=== PATIENT | male | born 1950 | race Caucasian/White ===

== ENCOUNTER 2016-12-16 16:12 | Observation (INO) | payer BC ==
--- NOTE | ~2016-12-16 | HP ---
History And Physical [facility] [address] [place]. [address] NAME: LIV AGUILAR JR : 54 STATUS : ADM Neelam PAT#: [id number] AGE: 66 ADM/REG DATE : 12/16/16 MR#: [id number] REPORT SERV DATE: 12/17/16 DICTATED BY: AFSANEH LADD DATE: 12/17/16 REPORT STATUS : Draft TRANSCRIBED BY: MODCesar DATE: 12/17/16 DATE OF ADMISSION: 12/16/2016 CHIEF COMPLAINT: MADRIGAL and episodic chest pressure. HISTORY OF PRESENT ILLNESS: A very pleasant 66-year-old white gentleman with no known history of CAD, reports over the past two weeks dyspnea on exertion and profound fatigue. He reports episodic chest pressure with a significant episode on 12/12 while playing with his grandkids. His who is also present at bedside reports that he stood up and grabbed his left chest. He took aspirin with improvement in his symptoms, but he did not seek evaluation or treatment at that time. His also reports some swelling of his hands and his earlobes. The chest pressure radiated to his left arm, shoulder, and back. He reports associated shortness of breath, nausea, diaphoresis, dizziness, and belching. At its most intense, he rated the chest discomfort a 10/10. At time of interview in the [facility], he is pain free. The episode lasted approximately a minute in duration, but it would then come and go, though there seems to be no pattern with activity. He denies any stressful, argumentative, or confrontational events. He does report persistent fatigue. He is an active gentleman, mows his own lawn, but actually children have done that for him this past week. He has occasionally taken Tums for these symptoms with no improvement. Of note, the patient did undergo nuclear stress testing in 06/2016 with good exercise tolerance to a Paulo stage 3 at 7.83 minutes, 10 METS with no ischemia identified at that time. The patient denies any personal history of myocardial infarction, stroke, DVT, or pulmonary embolus. The patient denies any recent fever or chills, no palpitations, no syncopal episodes. Denies PND or orthopnea. PAST MEDICAL HISTORY: 1. Dyslipidemia, statin intolerant. 2. Denies hypertension or diabetes. 3. Psoriatic arthritis. 4. Former tobacco abuse. SURGICAL HISTORY: 1. Total five knee surgeries bilaterally. 2. Lumbar surgery. 3. Thoracic spine surgery. 4. Right rotator cuff. 5. Bilateral carpal tunnel. 6. Tonsillectomy. SOCIAL HISTORY: He is with two children. He is employed in sales. He does not have a structured exercise routine, although he is active. Quit smoking five years ago; prior to that, was one pack per day for 30 years. Denies alcohol or illicits. FAMILY HISTORY: No embolic events reported in first-degree relatives. History And Physical [address] [place]. [address] NAME: LIV AGUILAR JR : 54 STATUS : ADM Neelam PAT#: [id number] AGE: 66 ADM/REG DATE : 12/16/16 MR#: [id number] REPORT SERV DATE: 12/17/16 DICTATED BY: AFSANEH LADD DATE: 12/17/16 REPORT STATUS : Draft TRANSCRIBED BY: KELIN DATE: 12/17/16 REVIEW OF SYSTEMS: A 14-point review of systems performed, significant for HPI including sleep study recently, negative for sleep apnea. Otherwise, complete review of systems obtained and negative. ALLERGIES: NO KNOWN ALLERGIES, BUT STATIN INTOLERANT TO CRESTOR AND LIPITOR, CAUSED MYALGIAS. HOME MEDICINES: Humira 40 mg subcu every two weeks, Tums p.r.n., prednisone 5 mg daily, Valtrex 1 g t.i.d. x7 days completed 12/16/2016. PHYSICAL EXAMINATION: VITAL SIGNS: On physical exam, bilateral blood pressures on arrival, right 140/83, left 148/84; this morning 124/82. Pulse 67, respirations 16, temperature 98.3, O2 saturation 96% on room air. Height 6 feet 1 inch, weight 211 pounds, BMI 28. GENERAL: Cooperative, in no apparent distress. HEENT: Pupils 2 mm, sclera nonicteric. Nares patent. Moist mucous membranes. No xanthelasma. NECK: Trachea midline, no thyromegaly. No JVD. No bruits. LYMPH: No cervical lymphadenopathy. No supraclavicular lymphadenopathy. RESPIRATORY: Unlabored respirations. Breath sounds clear bilaterally to posterior auscultation. No wheezes or rhonchi. CARDIOVASCULAR: Regular rate. No murmur, rub or gallop appreciated. Extremities without edema. Pulses 2+ bilaterally. ABDOMEN: Soft, nontender, nondistended, normal bowel sounds auscultated throughout. No organomegaly. SKIN: Warm, dry extremities. No pallor, or cyanosis. PSYCHIATRIC: Appropriate affect. Alert, oriented x3. LABORATORY DATA: Troponin less than 0.02 twice. TSH 1.910. Potassium 4.0, BUN 13, creatinine 1.30, glucose 98, magnesium 2.3. BNP 37.4. WBC 9.0, hemoglobin 14.0, hematocrit 40.7, platelet count 230,000. EKG; sinus rhythm. Echo, 07/2015: EF 56%. MPI, 06/2016: Paulo stage 3, 7.83 minutes, 10 METS. No ischemia. Low risk. CTA of chest, no PE. Chronic insufficiency, fractures T4, T9, T11. ASSESSMENT AND PLAN: 1. Substernal chest pain concerning for angina given recent stress test, which was negative and low risk with good exercise tolerance. The patient will be held n.p.o. for now. Would consider cath to evaluate coronary anatomy. We will discuss plan of care with rounding physician. Further recommendations forthcoming. 2. Dyspnea on exertion. Check an echocardiogram. Consider cath. CTA of chest, negative for pulmonary embolism. 3. Fatigue, as above in #1 and #2. TSH 1.910. 4. Dyslipidemia, statin intolerant. We will check a lipid panel. History And Physical [address] [address] NAME: LIV AGUILAR JR : 54 STATUS : ADM Neelam PAT#: [id number] AGE: 66 ADM/REG DATE : 12/16/16 MR#: [id number] REPORT SERV DATE: 12/17/16 DICTATED BY: AFSANEH LADD DATE: 12/17/16 REPORT STATUS : Draft TRANSCRIBED BY: KELIN DATE: 12/17/16 CHU/KELIN Afsaneh Ladd, MSN, [employer] / [id number] CC: BHAVESH Pavon, [employer] Wade Brock M.D.
[2016-12-16 14:02] LABS: BASOPHILS 0.3 %; BASOPHILS ABSOLUTE 0.03 10/3/uL (0.0-0.16); EOSINOPHILS 1.7 %; EOSINOPHILS ABSOLUTE 0.15 10/3/uL (0.0-0.53); ER CBC TAT 0 Hrs 03 Mins; HEMATOCRIT 40.7 % (40.0-51.0); IMMATURE GRANULOCYTES 0.4 %; IMMATURE GRANULOCYTES ABSOLUTE 0.04 10/3/uL (0.0-0.11); LYMPHOCYTES 28.7 %; LYMPHOCYTES ABSOLUTE 2.59 10/3/uL (0.67-4.30); MEAN CORPUSCULAR HEMOGLOB 31.5 pg (26.0-34.0); MEAN CORPUSCULAR VOLUME 91.5 fL (80-100); MEAN PLATELET VOLUME 9.4 fL (9.2-13.0); MONOCYTES 6.9 %; MONOCYTES ABSOLUTE 0.62 10/3/uL (0.21-1.20); PLATELET COUNT 230 10/3/uL (150-400); RBC DISTRIBUTION WIDTH 13.2 % (12.0-16.0); RED CELL COUNT 4.45 10/6/uL (4.7-6.1)
[2016-12-16 14:07] LABS: MANUAL DIFF NO %; MEAN CORPUS HGB CONC 34.4 g/dL (32.0-36.0)
[2016-12-16 14:11] LABS: INTERNATIONAL NORMAL RATI 1.1 UNITS (-); PROTIME (NOT ORD) 13.7 SEC (12.0-14.5)
[2016-12-16 14:25] LABS: BUN (BLOOD UREA NITROGEN) 13 MG/DL (6-23); CALCIUM, SERUM 9.5 MG/DL (8.5-10.4); CHEST PAIN PROFILE TAT 0 Hrs 26 Mins; CHLORIDE, SERUM 106 MMOL/L (96-112); CO2 (CARBON DIOXIDE) 28 MMOL/L (24-34); GFR AFRICAN AMERICAN 67 ML/MIN (>=60); GFR NON AFRICAN AMERICAN 58 ML/MIN (>=60); GLUCOSE, SERUM 98 MG/DL (60-99); SODIUM, SERUM 142 MMOL/L (135-148); TROPONIN I <0.02 NG/ML (<0.05)
[2016-12-16 15:30] LABS: SED RATE 18 MM/HR (0-15)
[~2016-12-16 16:12] MED LIST: ACET500CAP PO; ADVIL MIGRAI200 MG PO; ADVIL PO; CRESTOR10 PO; CRESTOR20 MG PO; DIL2TAB PO; FISH-EPA1000 MG PO; FOLIC PO; HUMIRA PEN SC; METHOC750B PO; MTX2.5 PO; MULTIVITAMI1 PO; NEUR400; OXAPROZIN600 MG PO; P10 PO; P5 PO; PERCOCET1 TA4 PO; TREXALL5 MG PO; ULTRAM50 PO; VALTREX5 PO; ZOCOR10 PO; ZOFRAN4 PO
[2016-12-16] MEDS ORDERED: HUMIRA PEN SC (18:46)
[2016-12-16] MEDS ORDERED: P5 PO (18:46)
[2016-12-16] MEDS ORDERED: VALTREX5 PO (18:47)
[2016-12-16] MEDS ORDERED: TUMSROLL PO (18:47)
[2016-12-17 01:06] LABS: TROPONIN I <0.02 NG/ML (<0.05)
[2016-12-17 11:06] LABS: CHOL/HDL RATIO(NOT ORDER) 5.4 (0-5); CHOLESTEROL 163 MG/DL (< 200); HDL CHOLESTEROL 30 MG/DL (> 39); LDL CHOLESTEROL 106 MG/DL (< 130); NON-HDL CHOLESTEROL 133 MG/DL (< 160); TRIGLYCERIDE 135 MG/DL (< 150)
[2016-12-18 06:19] LABS: BASOPHILS 0.6 %; BASOPHILS ABSOLUTE 0.05 10/3/uL (0.0-0.16); EOSINOPHILS 2.4 %; HEMATOCRIT 43.1 % (40.0-51.0); HEMOGLOBIN 14.5 g/dL (13.6-17.8); IMMATURE GRANULOCYTES 0.5 %; IMMATURE GRANULOCYTES ABSOLUTE 0.04 10/3/uL (0.0-0.11); LYMPHOCYTES 24.7 %; LYMPHOCYTES ABSOLUTE 2.07 10/3/uL (0.67-4.30); MANUAL DIFF NO %; MEAN CORPUS HGB CONC 33.6 g/dL (32.0-36.0); MEAN CORPUSCULAR HEMOGLOB 31.1 pg (26.0-34.0); MEAN CORPUSCULAR VOLUME 92.5 fL (80-100); MEAN PLATELET VOLUME 9.4 fL (9.2-13.0); MONOCYTES 7.3 %; MONOCYTES ABSOLUTE 0.61 10/3/uL (0.21-1.20); NEUTROPHILS 64.5 %; NEUTROPHILS ABSOLUTE 5.42 10/3/uL (2.02-8.40); PLATELET COUNT 256 10/3/uL (150-400); RBC DISTRIBUTION WIDTH 13.1 % (12.0-16.0); RED CELL COUNT 4.66 10/6/uL (4.7-6.1); WHITE BLOOD CELLS 8.4 10/3/uL (4.5-10.5)
[2016-12-18 06:28] LABS: CALCIUM, SERUM 8.6 MG/DL (8.5-10.4); CHLORIDE, SERUM 110 MMOL/L (96-112); CHOL/HDL RATIO(NOT ORDER) 5.3 (0-5); CHOLESTEROL 165 MG/DL (< 200); CO2 (CARBON DIOXIDE) 24 MMOL/L (24-34); CREATININE 1.23 MG/DL (0.70-1.30); GFR AFRICAN AMERICAN 71 ML/MIN (>=60); GFR NON AFRICAN AMERICAN 62 ML/MIN (>=60); GLUCOSE, SERUM 98 MG/DL (60-99); HDL CHOLESTEROL 31 MG/DL (> 39); LDL CHOLESTEROL 109 MG/DL (< 130); NON-HDL CHOLESTEROL 134 MG/DL (< 160); POTASSIUM, SERUM 4.1 MMOL/L (3.5-5.3); SODIUM, SERUM 142 MMOL/L (135-148); TRIGLYCERIDE 127 MG/DL (< 150)
[2016-12-18 06:29] LABS: BUN (BLOOD UREA NITROGEN) 17 MG/DL (6-23)
[2016-12-18] MEDS ORDERED: PLAVIX PO (09:42)
[2016-12-18] MEDS ORDERED: PRIN2.5 PO (13:34)
[2016-12-18] MEDS ORDERED: LIPITOR40 PO (13:34)
[2016-12-18] MEDS ORDERED: LOP25 PO (13:34)
[2016-12-18] MEDS ORDERED: NITROSTAT0.4 MG SL (13:35)
[2016-12-18] MEDS ORDERED: NITROSTAT0.4 MG (13:47)
== END 2016-12-18 15:30 | disposition home or self-care (01) ==
LOC: ER 16:12 → CDU1 18:28 → CDU2 19:12 → SSU1 12-18 08:29
PROVIDERS: Clinical Nurse Specialist; Nurse Practitioner Family
DX: I25.110 Atherosclerotic heart disease of native coronary artery with unstable angina pectoris (principal); E78.5 Hyperlipidemia, unspecified; L40.50 Arthropathic psoriasis, unspecified; Z87.891 Personal history of nicotine dependence; Z98.890 Other specified postprocedural states; Z90.89 Acquired absence of other organs; Z88.8 Allergy status to other drugs, medicaments and biological substances; Z79.899 Other long term (current) drug therapy
CPT/HCPCS: 71010; 71275; 80048; 80061; 83735; 83880; 84443; 84484; 85025; 85347; 85610; 85652; 85730; 93005; 93458; 99152; 99153; 99285; A9270-GY; C1769; C1874; C1887; C1894; C9600; G0378; J2250; J3010; Q9967